=== PATIENT | female | born 1945 | race Caucasian/White ===

== ENCOUNTER 2021-10-26 17:44 | Emergency (ER) | payer MEDICARE ==
[~2021-10-26] VITALS: Ht 154.9 cm; Wt 54.5 kg
[~2021-10-26 17:44] MED LIST: AMA1T PO; LISI-222 PO; METF500T PO
[2021-10-26 19:19] LABS: BASOPHILS % (AUTO) 0.3 % (0-1); EOSINOPHILS # (AUTO) 0.4 X10'3 (0-0.9); EOSINOPHILS % (AUTO) 3.7 % (0-6); HEMATOCRIT 39.8 % (35.0-45.0); HEMOGLOBIN 13.3 g/dl (12.0-16.0); LYMPHOCYTES # (AUTO) 3.2 X10'3 (1.1-4.8); LYMPHOCYTES % (AUTO) 32.9 % (21-51); MEAN CORPUSCULAR HEMOGLOBIN 29.7 PG (27.0-31.0); MEAN CORPUSCULAR HGB CONC 33.5 g/dL (33.0-36.5); MEAN CORPUSCULAR VOLUME 88.8 FL (78-98); MEAN PLATELET VOLUME 7.6 FL (7.4-10.4); MONOCYTES # (AUTO) 0.8 X10'3 (0-0.9); MONOCYTES % (AUTO) 8.2 % (2-12); NEUTROPHILS # (AUTO) 5.4 X10'3 (1.8-7.7); NEUTROPHILS % (AUTO) 54.9 % (42-75); PLATELET COUNT 354 X10'3 (140-440); RED BLOOD COUNT 4.48 X10'6 (4.20-5.60); RED CELL DISTRIBUTION WIDTH 13.5 % (11.5-14.5); WHITE BLOOD COUNT 9.8 X10'3 (4.5-11.0)
[2021-10-26 19:37] LABS: ALANINE AMINOTRANSFERASE 26 U/L (12-78); ALBUMIN 3.9 G/DL (3.4-5.0); ALBUMIN/GLOBULIN RATIO 1.1 (1.1-1.5); ALKALINE PHOSPHATASE 117 IU/L (46-116); ANION GAP 6 (8-16); ASPARTATE AMINO TRANSFERASE 16 U/L (10-37); BILIRUBIN,TOTAL 0.2 MG/DL (0.1-1.0); BLOOD UREA NITROGEN 15 MG/DL (7-18); BUN/CREATININE RATIO 16.7 (6.6-38.0); CALCIUM 9.7 MG/DL (8.5-10.1); CHLORIDE 105 MMOL/L (99-107); GLUCOSE 89 MG/DL (70-104); POTASSIUM 4.1 MMOL/L (3.5-5.1); SODIUM 142 MMOL/L (135-145); TOTAL CARBON DIOXIDE 31.3 MMOL/L (24-32); TOTAL PROTEIN 7.5 G/DL (6.4-8.2); eGFR 61 ML/MIN
[2021-10-26] MEDS ORDERED: OMEP40CA21 PO (22:21)
[2021-10-26 22:35] VITALS: BP 160/80
== END 2021-10-26 22:41 | disposition home or self-care (01) ==
LOC: ER 17:45
DX: R06.00 Dyspnea, unspecified (principal); R07.89 Other chest pain
CPT/HCPCS: 36415; 71045; 80053; 83880; 84484; 85025; 93005; 99285